=== PATIENT | female | born 1970 | race Caucasian/White ===

== ENCOUNTER 2019-12-15 12:17 | Emergency (ER) | payer OTHER ==
[~2019-12-15] VITALS: Ht 165.1 cm; Wt 108.9 kg
[2019-12-15] MEDS ORDERED: GABA300 (14:26)
[2019-12-15] MEDS ORDERED: TRAZ50 (14:27)
[2019-12-15] MEDS ORDERED: IBUP200 PO (14:27)
[2019-12-15] MEDS ORDERED: ACET325 PO (14:27)
[2019-12-15] MEDS ORDERED: EUTHYROX50 MCG (14:27)
[2019-12-15] MEDS ORDERED: BUSP5 (14:27)
[2019-12-15] MEDS ORDERED: DICL25ER (14:27)
[2019-12-15] MEDS ORDERED: CITA20 (14:28)
[2019-12-15] MEDS ORDERED: ATOR10 (14:28)
[2019-12-15] MEDS ORDERED: PRED20 PO (16:02)
== END 2019-12-15 16:18 | disposition home or self-care (01) ==
LOC: ER 12:17
DX: M54.17 Radiculopathy, lumbosacral region (principal); F17.200 Nicotine dependence, unspecified, uncomplicated; Z79.899 Other long term (current) drug therapy; X50.0XXA Overexertion from strenuous movement or load, initial encounter
CPT/HCPCS: 96372; 99283-25; J1170; J1885; J7512

== ENCOUNTER 2020-01-09 11:56 | Emergency (ER) | payer OTHER ==
[~2020-01-09] VITALS: Ht 165.1 cm; Wt 106.6 kg
[~2020-01-09 11:56] MED LIST: ACET325 PO; ATOR10; BUSP5; CITA20; DICL25ER; EUTHYROX50 MCG; GABA300; IBUP200 PO; PRED20 PO; TRAZ50
[2020-01-09] MEDS ORDERED: METPRE4DP PO (12:28)
[2020-01-09] MEDS ORDERED: Percocet 5-3251 EACH PO (12:28)
== END 2020-01-09 12:48 | disposition home or self-care (01) ==
LOC: ER 11:56
DX: M54.41 Lumbago with sciatica, right side (principal); F17.210 Nicotine dependence, cigarettes, uncomplicated; Z79.899 Other long term (current) drug therapy
CPT/HCPCS: 99283; J7512